=== PATIENT | female | born 1955 | race Caucasian/White ===

== ENCOUNTER 2016-12-08 19:11 | Emergency (ER) | payer OTHER ==
[~2016-12-08 19:11] MED LIST: ATEN-100 PO; LOSA25TA31 PO; POTA-243 PO
[2016-12-08 19:18] VITALS: BP 224/104; PULSE 75; RESP 20; TEMP 97.5; O2SAT 97
[2016-12-08] MEDS ORDERED: COZA25TA PO (19:35)
[2016-12-08] MEDS ORDERED: POTA10TA2 PO (19:35)
[2016-12-08] MEDS ORDERED: AMLO10TA2 PO (19:35)
[2016-12-08] MEDS ORDERED: ATEN25TA PO (19:35)
[2016-12-08] MEDS ORDERED: DYAZ37.5 PO (19:35)
[2016-12-08 19:40] VITALS: BP 195/101; PULSE 77; RESP 14; O2SAT 96
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
[2016-12-08 21:00] VITALS: BP 199/110; PULSE 76; RESP 14; O2SAT 95
[2016-12-08] MEDS ORDERED: KETOROLAC TROMETHAMINE 60 MG/2 ML (IM) VIAL IM ONE (21:00)
[2016-12-08] MEDS ORDERED: IBUP-232 PO (21:02)
[2016-12-08] MEDS ORDERED: CYCL10TA PO (21:03)
[2016-12-08] MEDS ORDERED: CYCLOBENZAPRINE HCL 10 MG TAB PO ONE (21:15)
[2016-12-08] MEDS ORDERED: CETI-1 PO (21:29)
[2016-12-08] MEDS ORDERED: IBUPROFEN 800 MG TAB PO ONE (21:30)
== END 2016-12-08 21:50 | disposition home or self-care (01) ==
LOC: PHED 19:11
DX: T14.8XXA Other injury of unspecified body region, initial encounter (principal); V89.2XXA Person injured in unspecified motor-vehicle accident, traffic, initial encounter
CPT/HCPCS: 99283

== ENCOUNTER 2017-07-02 20:27 | Emergency (ER) | payer OTHER ==
[~2017-07-02] VITALS: Ht 162.6 cm; Wt 75.0 kg
[~2017-07-02 20:27] MED LIST changes: +AMLO10TA2 PO; -ATEN-100 PO; +ATEN25TA PO; +CETI-1 PO; +COZA25TA PO; +CYCL10TA PO; +DYAZ37.5 PO; +IBUP-232 PO; -LOSA25TA31 PO; -POTA-243 PO; +POTA10TA2 PO
[2017-07-02 20:44] VITALS: BP 183/88; PULSE 77; RESP 18; TEMP 98.4; O2SAT 97
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
[2017-07-02] MEDS ORDERED: IBUP-232 PO (21:45)
[2017-07-02] MEDS ORDERED: IBUPROFEN 600 MG TAB PO ONE (21:45)
== END 2017-07-02 21:51 | disposition home or self-care (01) ==
LOC: PHEFT 20:27
DX: S39.012A Strain of muscle, fascia and tendon of lower back, initial encounter (principal); V43.52XA Car driver injured in collision with other type car in traffic accident, initial encounter; I10 Essential (primary) hypertension
CPT/HCPCS: 72100; 99283